=== PATIENT | female | born 1945 | race Caucasian/White ===

== ENCOUNTER → 2019-09-05 | Outpatient (CLI) | payer MEDICARE, OTHER ==
--- NOTE | 2019-09-05 19:58 | MRI ---
EXAM DESCRIPTION: Lumbar Spine w/o Contrast : Magnetic Resonance Imaging. CLINICAL HISTORY: radiculopathy COMPARISON: LUMBAR TECHNIQUE: Multiplanar, multiple standard sequences, non contrast MRI, lumbar spine. FINDINGS: L5-S1: The disc is well visualized on axial T2 series 501, image 3. Disc desiccation and minimal disc space loss. Tiny posterior bulge. Degenerative hypertrophy of the bilateral facet joints and flavum ligaments indices canal elements) more on the left. Mild canal narrowing and epidural lipomatosis. Bilateral mild to moderate foraminal narrowing. L4-L5: Disc desiccation and minimal disc space loss. Grade 1 anterolisthesis 3 mm. Posterior disc bulge broad-based. Mild hypertrophic changes of the canal elements. Bilateral narrowing of the subarticular recesses. AP canal diameter 8 mm with epidural lipomatosis. Bilateral borderline foraminal stenosis. L3-L4: Disc desiccation and minimal disc space loss. Posterior left paracentral disc protrusion 12 x 5 mm with extrusion below the disc space 6 mm. Impinging of the thecal sac and effacement of the left subarticular recess and impingement of the descending left L4 nerve. Hypertrophic changes in the canal elements. Left paracentral severe canal stenosis. Moderate to severe right foraminal narrowing and moderate left foraminal narrowing. L2-L3: Disc desiccation with disc space preserved and no bulging. Minimal hypertrophic changes of the canal elements and mild canal narrowing. Bilateral mild foraminal narrowing. L1-L2: Disc desiccation minimal anterior bulging. Minimal hypertrophic changes in the canal elements. Mild canal narrowing. Bilateral mild foraminal narrowing. Conus terminates just above the disc space. T12-L1: Normal signal in the disc with no bulging. Disc space maintained. Canal elements unremarkable. Canal and foramina are patent. Minimal mid lumbar levoscoliosis. Paravertebral soft tissues minimal paravertebral muscle atrophy.. Distal cord normal signal and caliber. Otherwise normal marrow signal in the remaining vertebral bodies and the posterior elements. Vertebral bodies are not compressed at any level. IMPRESSION: 1. Multilevel hypertrophic changes in the posterior flavum ligaments and facet joints. Multilevel disc desiccation and disc space loss. 2. Grade 1 anterolisthesis L4-L5 with posterior disc bulge. Mild to moderate central canal stenosis with epidural lipomatosis and bilateral narrowing of the subarticular recesses. Bilateral borderline foraminal stenosis. 3. Left posterior herniation of the L3-4 disc with inferior extrusion causing left subarticular recess stenosis and impingement of the left L4 nerve. Severe left paracentral canal stenosis. Electronically signed by: Tj Bruce MD 09/05/2019 7:56 PM CDT
== END ==
LOC: MRI 13:17
PROVIDERS: ATTEND Emergency Medicine
DX: M54.16 Radiculopathy, lumbar region (principal); M51.26 Other intervertebral disc displacement, lumbar region; M43.16 Spondylolisthesis, lumbar region; M51.36 Other intervertebral disc degeneration, lumbar region; M48.062 Spinal stenosis, lumbar region with neurogenic claudication; E88.2 Lipomatosis, not elsewhere classified; M24.28 Disorder of ligament, vertebrae

== ENCOUNTER → 2019-09-13 | Outpatient (CLI) | payer MEDICARE, OTHER ==
--- NOTE | 2019-09-13 14:29 | RAD ---
EXAM DESCRIPTION: Chest,2 Views: KATHERINE/ CLINICAL HISTORY: 74 years Female CHRONIC COUGH COMPARISON: 2 view chest July 2016. TECHNIQUE: Two views. PA and Lateral. FINDINGS: Lungs: Moderate inflation. Stable interstitial markings. No acute infiltrate. Pleural spaces: No effusion or pneumothorax bilaterally. Heart: Left ventricular enlargement stable. Pulmonary Vascularity: Not increased. Mediastinum: Not widened. Aorta: Unremarkable. Bony Thorax/Spine: No acute bony thoracic abnormalities. Narrowed disc spaces. IMPRESSION: Senescent chest with no radiographic evidence of acute cardiopulmonary disease. Electronically signed by: Tj Bruce MD 09/13/2019 2:28 PM CDT
--- NOTE | 2019-09-13 14:31 | US ---
EXAM DESCRIPTION: Abdomen,Limited: ULTRASOUND. CLINICAL HISTORY: 74 years Female LEFT UPPER QUADRANT PAIN. Previous left upper quadrant hernia. COMPARISON: None Available. TECHNIQUE: Transcutaneous scanning: Valiente-scale and Doppler modes. Impression: Scanning of the left upper quadrant. Abdominal wall is intact with no hernia neck and no hernia sac in the subcutaneous tissues. No dominant solid mass and no fluid collection. Spleen unremarkable on limited views. Electronically signed by: Tj Bruce MD 09/13/2019 2:30 PM CDT
== END ==
LOC: US 10:20
PROVIDERS: ATTEND Emergency Medicine
DX: R10.11 Right upper quadrant pain (principal); R05 Cough

== ENCOUNTER 2019-11-26 05:11 | Day surgery (SDC) | payer MEDICARE, OTHER ==
[2019-11-26] MEDS ORDERED: SODIUM CHLORIDE 0.9% (FLUSH) 10 ML SYG ONE (06:37)
[2019-11-26] MEDS ORDERED: MIDAZOLAM INJ 2 MG/2 ML VIAL ONE (07:10)
[2019-11-26] MEDS ORDERED: PROPARACAINE 0.5% OPHTH SOL 15 ML BTTL RIGHT_EYE ONE (07:32)
[2019-11-26] MEDS ORDERED: MOXIFLOXACIN HCL (OPHTH) 1 DROP DROPS RIGHT_EYE ONE (07:33)
[2019-11-26] MEDS ORDERED: LIDOCAINE 1% 2 ML VIAL INJ ONE (07:33)
[2019-11-26] MEDS ORDERED: DEXAMETHASONE 0.1% OPHTH SOL 1 DROP RIGHT_EYE ONE (07:34)
[2019-11-26] MEDS ORDERED: TOBRAMYCIN SULF 0.3 % OPHT SOL 1 DROP RIGHT_EYE ONE (07:34)
[2019-11-26] MEDS ORDERED: BRIMONIDINE 0.2% OPHTH DROPS RIGHT_EYE ONE (07:35)
== END 2019-11-26 08:50 | disposition home or self-care (01) ==
LOC: AMB 05:11
PROVIDERS: ATTEND Ophthalmology
DX: H25.11 Age-related nuclear cataract, right eye (principal); I25.10 Atherosclerotic heart disease of native coronary artery without angina pectoris; E66.9 Obesity, unspecified; Z88.6 Allergy status to analgesic agent; Z88.5 Allergy status to narcotic agent; Z88.8 Allergy status to other drugs, medicaments and biological substances; Z79.899 Other long term (current) drug therapy
CPT/HCPCS: 00142; 66984; A4216; J2250

== ENCOUNTER 2019-12-10 05:14 | Day surgery (SDC) | payer MEDICARE, OTHER ==
[2019-12-10] MEDS ORDERED: MOXIFLOXACIN HCL (OPHTH) 1 DROP DROPS ONE (05:45)
[2019-12-10] MEDS ORDERED: PROPARACAINE 0.5% OPHTH SOL 15 ML BTTL ONE (05:46)
[2019-12-10] MEDS ORDERED: TROP1%/CYCLOPEN 1%/PHENYL 2.5% DROPS ONE (05:47)
[2019-12-10] MEDS ORDERED: MIDAZOLAM INJ 2 MG/2 ML VIAL ONE (06:54)
[2019-12-10] MEDS ORDERED: LIDOCAINE 1% 2 ML VIAL INJ ONE (07:18)
[2019-12-10] MEDS ORDERED: BRIMONIDINE 0.2% OPHTH DROPS LEFT_EYE ONE (07:18)
[2019-12-10] MEDS ORDERED: DEXAMETHASONE 0.1% OPHTH SOL 1 DROP LEFT_EYE ONE (07:18)
[2019-12-10] MEDS ORDERED: TOBRAMYCIN SULF 0.3 % OPHT SOL 1 DROP LEFT_EYE ONE (07:18)
[2019-12-10] MEDS ORDERED: MOXIFLOXACIN HCL (OPHTH) 1 DROP DROPS LEFT_EYE ONE (07:18)
[2019-12-10] MEDS ORDERED: PROPARACAINE 0.5% OPHTH SOL 15 ML BTTL LEFT_EYE ONE (07:18)
== END 2019-12-10 08:11 | disposition home or self-care (01) ==
LOC: AMB 05:14
PROVIDERS: ATTEND Ophthalmology
DX: H25.12 Age-related nuclear cataract, left eye (principal); I25.10 Atherosclerotic heart disease of native coronary artery without angina pectoris; Z88.6 Allergy status to analgesic agent; Z88.5 Allergy status to narcotic agent; Z88.8 Allergy status to other drugs, medicaments and biological substances; Z79.899 Other long term (current) drug therapy
CPT/HCPCS: 00142; 66984; J2250